=== PATIENT | female | born 2000 | race American Indian/Alaskan Native ===

== ENCOUNTER 2022-04-01 14:37 | Emergency (ER) | payer SELFPAY ==
[2022-04-01] MEDS ORDERED: HYDROcodone/ACETAMINOPHEN 5-325 MG TAB PO STA (21:07)
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
[2022-04-02 01:38] VITALS: BP 112/66
== END 2022-04-02 01:38 | disposition home or self-care (01) ==
LOC: ED 14:37
DX: S80.10XA Contusion of unspecified lower leg, initial encounter (principal); M79.18 Myalgia, other site; V89.2XXA Person injured in unspecified motor-vehicle accident, traffic, initial encounter; Y93.89 Activity, other specified; Y92.89 Other specified places as the place of occurrence of the external cause; Y99.8 Other external cause status
CPT/HCPCS: 99282